=== PATIENT | male | born 1970 | race Caucasian/White ===

== ENCOUNTER 2022-07-14 23:15 | Emergency (ER) | payer OTHER, SELFPAY ==
--- NOTE | ~2022-07-14 | XR_ITS ---
EXAMINATION: XR FOREARM, RIGHT XR WRIST, RIGHT CLINICAL INFORMATION: Pain after fall COMPARISON: None TECHNIQUE: 2 views of the right forearm. 2 views of the right wrist. FINDINGS: Right forearm: There is a nondisplaced fracture of the distal ulnar diaphysis. No angulation. No additional fractures seen. Appropriate alignment of the elbow. Mild soft tissue swelling. Right wrist: No additional fractures are seen at the wrist. The carpal rows are well aligned. The distal soft tissues are unremarkable. XR/XR wrist RT min 3V IMPRESSION: Nondisplaced fracture of the distal ulnar diaphysis.
--- NOTE | ~2022-07-14 | XR_ITS ---
EXAMINATION: XR FOREARM, RIGHT XR WRIST, RIGHT CLINICAL INFORMATION: Pain after fall COMPARISON: None TECHNIQUE: 2 views of the right forearm. 2 views of the right wrist. FINDINGS: Right forearm: There is a nondisplaced fracture of the distal ulnar diaphysis. No angulation. No additional fractures seen. Appropriate alignment of the elbow. Mild soft tissue swelling. Right wrist: No additional fractures are seen at the wrist. The carpal rows are well aligned. The distal soft tissues are unremarkable. XR/XR forearm RT 2V IMPRESSION: Nondisplaced fracture of the distal ulnar diaphysis.
[2022-07-14 23:17] VITALS: BP 131/89; PULSE 82; RESP 16; TEMP 36.7; O2SAT 98; BMI 27.1
--- NOTE | 2022-07-14 23:30 | ED_ITS ---
HPI - Extremity Problem General Chief complaint: Extremity Injury, Upper Stated complaint: possibly broke arm at work Time Seen by Provider: 07/14/22 23:28 Source: patient Mode of arrival: ambulatory Limitations: no limitations History of Present Illness HPI Narrative: This is a 51-year-old male no significant medical history presenting to the emergency department status post work related injury coming in and complaining of right forearm pain. 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 When he fell he did not hit his head or lose consciousness. He tells me he strictly landed on his forearm and he is having pain localized to his forearm worse with movement better at rest. He reports intermittent numbness and tingling. Patient not on blood thinners. Patient has been able to lift things without difficulty. Patient denies fevers, chills, back pain, headache, vision changes, dizziness, weakness, facial asymmetry, chest pain, shortness of breath, nausea, vomiting, abdominal pain, changes in bowel habits, urinary/bowel incontinence/retention, saddle paresthesia To note patient denies trauma to head, neck, chest, abdomen and pelvis. Related Data Previous Rx's Medication Instructions Recorded cephalexin 500 mg tablet 500 mg PO Q6H 10 days #40 tabs 07/14/22 morphine 15 mg immediate release 15 mg PO BID PRN pain #8 tabs 07/14/22 tablet Allergies Allergy/AdvReac Type Severity Reaction Status Date / Time No Known Allergies Allergy Unverified 05/08/20 15:50 [No Known Allergies*] Review of Systems Review of Systems: Constitutional : No Weight loss, No Fever, No Chills, No Fatigue, No Malaise ENT/Mouth : No sore throat, No Rhinorrhea Eyes: No Eye Pain, No Swelling, No Redness Cardiovascular : No Chest Pain, No SOB, No Dyspnea on Exertion, No Orthopnea, No Edema, No Palpitations Respiratory : No Cough, No Sputum, No Wheezing Gastrointestinal : No Nausea, No Vomiting, No Diarrhea, No Constipation, No abdominal Pain, No Hematochezia, No Melena Genitourinary : No Dysuria, No Urinary Frequency, No Hematuria, Musculoskeletal : + joint pain, No Myalgias, No Joint Swelling Skin : No Skin Lesions, No rash Neuro : No Weakness, No Numbness, No Dizziness, No Headache Psych : No Anxiety/Panic, No Depression All other systems reviewed and are negative Yes all other systems are reviewed and are negative [facility] Past Medical History Attestation statement: The following information was validated with the patient. Source: old records reviewed and nursing notes reviewed Social History Social History Alcohol intake: current Alcohol intake frequency: a few times a week Alcohol type: beer Smoked in Last 30 Days: No Use of substances other than those prescribed or required for medical reasons: No Advance Directives: No Advance Directives Information Provided: Yes Physical Exam Vital Signs: Vital Signs: Last Vital Signs Temp 98.8 F 07/14/22 23:40 Pulse 80 07/14/22 23:40 Resp 18 07/14/22 23:40 BP 142/89 H 07/14/22 23:40 Pulse Ox 98 07/14/22 23:40 O2 Del Method 07/14/22 23:40 BMI result Body Mass Index 27.1 vss Appearance: Alert.? Oriented X3.? No acute distress.? Head: Normocephalic, atraumatic, no step-offs or deformities Eyes: Pupils equal, round and reactive to light.? Extraocular movements intact. CVS: Normal heart rate and rhythm.? Pulses normal.? Respiratory: No respiratory distress.? Breath sounds normal.? Abdomen: Soft and nontender.? Skin: Skin warm and dry.? Normal skin color.? Normal skin turgor.? Extremities: 5/5 strength to bilateral upper and lower extremities. Full ROM to b/l wrist, fingers, elbow, shoulder. 2+ radial pulses equal and b/l. Normal hand pet care technician b/l. Pain w/ palpation overlying right ulna middle portion. Small abrasion to medial aspect of right forearm. No gross abnormalities or distracting injuries b/l. Normal cap refil < 2 seconds to all UE digits. No wrist drop bilaterally. Normal supination and pronation to bilateral upper extremities pain-free and able to do it upon resistance Neuro: Oriented X 3.? No motor deficit.? No sensory deficit. CN 2-12 intact . Normal [id number], [id number]-[id number], steady tandem gait normal coordination. Course Reevaluation(s) Reevaluation #1: Wet read of x-ray showing distal ulnar fracture without dislocation. Will reach out to orthopedic for recommendation on splint. Time: 23:48 Reevaluation #2: Spoke to orthopedic Padmaja LEE who recommends sugar-tong splint and follow-up with the orthopedic team. At this time patient will be discharged home advised return with new or worsening symptoms. Educated on worrisome signs and symptoms and when to return. Comfortable discharge with prompt PCP and Ortho follow-up. To note patient with small abrasion to forearm therefore will give him short course of antibiotics. Closed fracture however. Time: 23:49 Reevaluation #3: After patient was placed in sugar-tong splint neurovascular status intact, normal capillary refill. Proper fitting splint. Patient will be discharged home educated on mornings and cautions of morphine. Patient verbalizes understanding. Time: 23:57 MDM - Extremity (Nontraumatic) MDM Narrative Medical decision making narrative: 1135 51-year-old male presents status post tripping down the last step of his truck and landing on his right forearm. Reports pain localized to the right mid forearm. Intermittent numbness and tingling. When he fell no head strike, loss of consciousness. Not on blood thinners. Physical examination significant for 5/5 strength to bilateral upper and lower extremities. Full ROM to b/l wrist, fingers, elbow, shoulder. 2+ radial pulses equal and b/l. Normal hand pet care technician b/l. Pain w/ palpation overlying right ulna middle portion. Small abrasion to medial aspect of right forearm. No gross abnormalities or distracting injuries b/l. Normal cap refil < 2 seconds to all UE digits. No wrist drop bilaterally. Normal supination and pronation to bilateral upper extremities pain-free and able to do it upon resistance GCS- 15 NIHSS-0 No evidence of ligament or tendon injury. Unlikely fracture dislocation however will obtain imaging to rule out. No signs of neurovascular compromise or compartment syndrome. Patient did not hit head, no headache, vision changes, weakness NH stroke scale 0. Unlikely intracranial hemorrhage, stroke head trauma. Plan at this time is imaging. Will obtain an image of right forearm and hand and wrist. Medical Records Attestation: I reviewed the patient's medical records. Lab Data Attestation: I reviewed the patient's lab results. Critical Care Time Critical Care Time Critical Care Time: No Total Critical Care Time: 35 Attestation: I attest to this time spent taking care of the patient, obtaining history, physical, reviewing labs, imaging, speaking to my attending, speaking to specialist. Discharge Plan Discharge Clinical Impression: Pain in right forearm, Abrasion, Work related injury, Fracture, ulna Patient Disposition: Home, Self-Care Instructions: Arm Fracture in Adults (ED), R.I.C.E. Treatment (ED), Bone Bruise (ED) Additional Instructions: Take your medications as prescribed. If you were prescribed antibiotics today, it is important that you take your medication to their entirety, do not skip any doses, do not finish them early. Follow-up with your primary care provider this week. Please call the orthopedic team to schedule an appointment as soon as possible. Keep splint on clean and dry. Return to the emergency department with new or worsening symptoms. Such as fevers, chills, chest pain, shortness of breath, nausea, vomiting, dizziness, headache, vision changes, lethargy, numbness, tingling, severe swelling, severe pain. Your x-ray showed a fracture to the bone in the forearm called the ulna. You may require MRI for further evaluation of ligaments and tendons. In case of emergency call 911 Follow-up with the [facility] here at [facility] as this was a work related injury You can take ibuprofen every 6 hours, Tylenol every 4 as needed for [id number] pain or discomfort. Morphine is a controlled medications/narcotics as been sent to your pharmacy please take this for severe pain, it can cause dependence, please do not take this with alcohol, do not take while driving or operating machinery as it can cause drowsiness. Do not share this medication with anyone. You can apply ice to affected area. XR/XR wrist RT min 3V IMPRESSION: Nondisplaced fracture of the distal ulnar diaphysis. XR/XR forearm RT 2V IMPRESSION: Nondisplaced fracture of the distal ulnar diaphysis. ? Prescriptions: New morphine 15 mg tablet 15 mg PO BID PRN (Reason: pain) Qty: 8 0RF Rx Instructions: Partial Fill upon patient request. cephalexin 500 mg tablet 500 mg PO Q6H 10 Days Qty: 40 0RF Referrals: [facility] – [place], [place] [facility] [Provider Group] - 1 day Stand Alone Forms: Work/School Release
[2022-07-14 23:40] VITALS: BP 142/89; PULSE 80; RESP 18; TEMP 37.1; O2SAT 98
[2022-07-15] MEDS: cephALEXin 500 MG CAPSULE PO (00:12)
== END 2022-07-15 00:21 | disposition home or self-care (01) ==
PROVIDERS: Emergency Provider Internal Medicine
DX: S52.691A Other fracture of lower end of right ulna, initial encounter for closed fracture (principal); S50.811A Abrasion of right forearm, initial encounter; V85.4XXA Person injured while boarding or alighting from special construction vehicle, initial encounter; Y93.89 Activity, other specified; Y92.69 Other specified industrial and construction area as the place of occurrence of the external cause; Y99.0 Civilian activity done for income or pay
CPT/HCPCS: 29125; 73090; 73110; 99284

== ENCOUNTER → 2022-07-22 08:34 | Outpatient (BNVA) | payer OTHER, SELFPAY | PROVIDERS: Visit Provider Internal Medicine | DX: S52.254A Nondisplaced comminuted fracture of shaft of ulna, right arm, initial encounter for closed fracture (principal); W18.30XA Fall on same level, unspecified, initial encounter | CPT/HCPCS: 99203 ==

== ENCOUNTER 2022-07-22 12:03 | Outpatient (REF) | payer OTHER, SELFPAY ==
--- NOTE | ~2022-07-22 | XR_ITS ---
EXAMINATION: XR FOREARM, RIGHT CLINICAL INFORMATION: Fracture shaft of right elbow COMPARISON: Right forearm 07/14/2022 TECHNIQUE: AP and lateral views of the right forearm were obtained. FINDINGS: There is mildly displaced fracture of the distal ulnar diaphysis compared to last study. No additional fracture seen. Mild soft tissue swelling. XR/XR forearm RT 2V IMPRESSION: New mildly displaced fracture distal ulnar diaphysis compared to 07/14/2022.
== END 2022-07-22 12:04 | disposition home or self-care (01) ==
LOC: HO.HOSX 12:03
PROVIDERS: Visit Provider Orthopaedic Surgery
DX: S52.201A Unspecified fracture of shaft of right ulna, initial encounter for closed fracture (principal)
CPT/HCPCS: 25530; 73090; 99202

== ENCOUNTER 2022-08-10 | Outpatient (REF) | payer OTHER, SELFPAY ==
--- NOTE | ~2022-08-10 | XR_ITS ---
EXAMINATION: XR FOREARM, RIGHT CLINICAL INFORMATION: Fracture follow-up COMPARISON: 07/22/2022 TECHNIQUE: AP and lateral views of the right forearm were obtained. FINDINGS: No significant change in the appearance or alignment of the transverse fracture of the distal ulnar shaft which is slightly angulated. No osseous bridging. No new abnormality. XR/XR forearm RT 2V IMPRESSION: No significant change in the appearance of the distal ulnar shaft fracture.
== END 2022-08-10 00:01 | disposition home or self-care (01) ==
LOC: HO.HOSX
PROVIDERS: Visit Provider Orthopaedic Surgery
DX: Z13.89 Encounter for screening for other disorder (principal)

== ENCOUNTER → 2022-08-10 12:03 | Outpatient (BNVA) | payer OTHER, SELFPAY | PROVIDERS: Visit Provider Orthopaedic Surgery | DX: S52.201D Unspecified fracture of shaft of right ulna, subsequent encounter for closed fracture with routine healing (principal) | CPT/HCPCS: 73090 ==

== ENCOUNTER 2022-08-30 14:23 | Outpatient (REF) | payer SELFPAY | END 2022-08-30 14:24 | disposition home or self-care (01) | LOC: HO.HOSX 14:23 | PROVIDERS: Visit Provider Orthopaedic Surgery | DX: Z13.89 Encounter for screening for other disorder (principal) ==

== ENCOUNTER 2022-08-31 08:21 | Outpatient (REF) | payer OTHER, SELFPAY ==
--- NOTE | ~2022-08-31 | XR_ITS ---
EXAMINATION: XR WRIST, RIGHT CLINICAL INFORMATION: Right wrist pain. COMPARISON: Right forearm radiographs dated 07/14/2022. TECHNIQUE: PA, lateral, and oblique views of the right wrist. FINDINGS: There is an acute, minimally displaced comminuted transverse fracture of the distal one third of the right ulnar diaphysis. Mild adjacent calcification is seen. The distal radius is intact. The carpal bones are normally aligned. There is mild soft tissue swelling. XR/XR wrist RT min 3V IMPRESSION: Mild interval healing of distal ulnar diaphysis fracture with fracture line still visualized.
== END 2022-08-31 08:22 | disposition home or self-care (01) ==
LOC: HO.HOSX 08:21
PROVIDERS: Visit Provider Physician Assistant
DX: S52.201A Unspecified fracture of shaft of right ulna, initial encounter for closed fracture (principal); S62.306D Unspecified fracture of fifth metacarpal bone, right hand, subsequent encounter for fracture with routine healing
CPT/HCPCS: 73110; 99212

== ENCOUNTER 2022-10-13 09:57 | Outpatient (REF) | payer OTHER, SELFPAY ==
--- NOTE | ~2022-10-13 | XR_ITS ---
EXAMINATION: XR WRIST, RIGHT CLINICAL INFORMATION: Fracture COMPARISON: Previous x-ray most recent August 2022 TECHNIQUE: PA, lateral, and oblique views of the right wrist. FINDINGS: There is a healing nondisplaced fracture of the distal shaft of the ulna. Fracture line appears more obscured and there is increasing bony callus formation. There is an old healed fracture of the base of the fifth metacarpal bone. No other fracture. Osteopenia. Mild arthritis at the first SKILLED NURSING joint. XR/XR wrist RT min 3V IMPRESSION: Healing fracture of the distal shaft of the ulna.
== END 2022-10-13 09:58 | disposition home or self-care (01) ==
LOC: HO.HOSX 09:57
PROVIDERS: Visit Provider Orthopaedic Surgery
DX: S52.201D Unspecified fracture of shaft of right ulna, subsequent encounter for closed fracture with routine healing (principal); S62.306D Unspecified fracture of fifth metacarpal bone, right hand, subsequent encounter for fracture with routine healing; M25.641 Stiffness of right hand, not elsewhere classified; R00.0 Tachycardia, unspecified; V87.8XXD Person injured in other specified noncollision transport accidents involving motor vehicle (traffic), subsequent encounter
CPT/HCPCS: 73110; 99212

== ENCOUNTER 2022-10-28 09:00 | Outpatient (RCR) | payer OTHER, SELFPAY ==
--- NOTE | 2022-09-03 08:51 | MHC.OT.EP ---
[address] [phone] Occupational Therapy Plan of Care Date of Evaluation: 09/03/22 Diagnosis: Right ulnar shaft fx Right 5th MC fx Assessment: 51 yo right hand dominant male presents to OT about seven weeks s/p fall at work w/ right ulnar shaft fx. He was initially placed in sugar tong splint in ED and referred to [facility]. He has since had several follow ups w/ Dr Matthews and was placed in [place] splint until this past week, removed at last ortho appointment 08/31/22 and x-rays showed bony healing of ulna, but also indicated subacute right D5 MC base fx that patient reports likely happened in May. On assessment today, he continues to have significant edema in right hand, but wrist and digit range has improved since removed from cast few days ago and given clearance to start range of motion, now coming about 1 cm tip to palm and wrist ROM within about 20 degrees of functional range. He is very motivated and hopeful to return to work in the next month or so. He has a physical fitness test in one month and at this time I am hopeful but have also recommend he look into process of deferring test a bit longer just in case he is not 100%. Frequency and Duration: The patient will be seen 2x/wk for 6 weeks Short Term Goals: Ind w/ heat/cold modalities apprpriately Ind w/ self edema management techniques Full tip-palm digit flexion Right gross grasp 20lb Right wrist ROM 60/50 Right forearm rotation 70/70 Pt to demo ease w/ light bimanual tasks in clinic (buttoning shirt, tying laces, etc) Equity Holder Goals: Pt to demo lift and carry 30lb bimanually w/ ease Right gross grasp >75lb Right wrist AROM 70/60 Right forearm rotation 80/80 Right hand edema figure 8 - 47.5 cm Treatment Plan: Therapeutic Exercise Therapeutic Activity Home Exercise Program Patient Education Edema Control ADL Training Paraffin Fluidotherapy MHP Cold Packs Joint Mobilization Soft Tissue Mobilization Kinesiotaping Electronically Signed By: Jeni Shields, OTR/L CHT Please Sign and return to therapist. Thank you once again for your referral.
--- NOTE | 2022-10-05 13:38 | MHC.OT.OD ---
[address] [phone] F: [phone] Occupational Therapy Daily Note Start Time: 899 End Time: 944 Visit Duration: 45 Billable Time: 45 Date of Evaluation: 09/03/22 Treatments to Date: 8 Cancellations to Date: 0 Subjective: 10/05 - My whole arm was numb most of yesterday. The swelling only goes away temporarily. 09/28 Pt reports exercising from 3 -7 or 8 pm daily including a few hours of using a hand gripper. 09/21 - The swelling goes away temporarily, but seems to come back in the morning. 09/16 - I bought the edema glove and it seems to be helping. The swelling is getting in the way, it goes down but then if I walk or when I wake up it's there again Pain Score: 2 Pain Location: right wrist and hand, shoulder Objective: Seated lateral trunk extension with R UE overhead to facilitate lymphatic drainage Kinesiotape to R hand for lymphatic correction Fabricated right wrist cock-up splint for nighttime use Pt. educated in indications, wearing schedule, and skin checks AROM right wrist and thumb 10 x 2 sets each followed by passive MC and IP stretch to tolerance. Intrinsics streches 7 sec holds. 10 reps for PIP/DIP flex, and composite digit ext Practice with isolated intrinsic stretches digit 2-5 Straight fist to palm COCOPAH faded to indep Tests and Measures: Wrist AROM 50/54 Able to make full composite fist following exercise (previously 2 cm tip-palm pre-tx) Gross grasp R: 35# (previously 15#) L: 120# Palmar circumference at MCP's R: 9.5 cm L: 9.0 cm Assessment: Pt seen for re-eval this visit. 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 He continues to c/o nighttime pain and numbness in his R hand, as well as significant edema, reporting that yesterday his entire UE was numb for most of the day. Shoulder AROM is WFL's although pain with end range flexion and cross body Abd. Shoulder pain is improving, although continues to wake him up at night and is stiff in the morning. Pt. has been very compliant with all exercises and has purchased multiple items to assist with decreasing R hand edema. He has been issued compression sleeves, digit sleeves, and has shown some progress with edema reduction k-tape methods, although all results have been temporary. Pt. has follow up with Dr. Matthews next week. Continued skilled OT is recommended as well as possible imaging/nerve conduction studies. Short Term Goals: Ind w/ heat/cold modalities apprpriately - GOAL MET Ind w/ self edema management techniques - GOAL MET Full tip-palm digit flexion - GOAL MET Right gross grasp 20lb - GOAL MET Right wrist ROM 60/50 - PROGRESSING Right forearm rotation 70/70 - GOAL MET Pt to demo ease w/ light bimanual tasks in clinic (buttoning shirt, tying laces, etc) - GOAL MET Mcfp Goals: Pt to demo lift and carry 30lb bimanually w/ ease Right gross grasp >75lb Right wrist AROM 70/60 Right forearm rotation 80/80 Right hand edema figure 8 - 47.5 cm Plan of Care: Recommending continued OT services for edema/pain management, and strengthening of R UE. 2x/wk for 4 more weeks Treatment Plan: Therapeutic Exercise Therapeutic Activity Home Exercise Program Splinting Patient Education Desensitization/Sensory Re-ed Edema Control Fluidotherapy MHP Cold Packs Joint Mobilization Soft Tissue Mobilization Kinesiotaping Treatment Plan Comments: Electronically Signed By: Ana Leyva MS OTR/L Reviewed/agree with student documentation: Therapist:
--- NOTE | 2022-10-28 09:57 | MHC.OT.DC ---
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 He has been very complaint and motivated for all therapy and is IND with home exercise program at this time. Functional gains as follows: Pain free in right shoulder and wrist with ROM WFL's. Gross grasp strength improved to 55#, able to make a full fist and lift ~30# bimanually with ease. He should still avoid heavy lifting per Dr Matthews recommendations and remains out of work until the beginning of November. His only barrier remains constant edema in right hand/digits that is worse in the morning. He has had a significant reduction in edema of the hand, although this and stiffness persists. At this time, Moo is IND with self management and is in agreement with discharge to [facility]. Electronically Signed By: Ana Leyva, OTR/L Reviewed/agree with student documentation: Therapist: Please Sign and return to therapist, thank you for your referral.
== END 2022-11-09 13:47 | disposition home or self-care (01) ==
LOC: HO.OT 09:00
PROVIDERS: Visit Provider Orthopaedic Surgery
DX: S62.316D Displaced fracture of base of fifth metacarpal bone, right hand, subsequent encounter for fracture with routine healing (principal); S52.201D Unspecified fracture of shaft of right ulna, subsequent encounter for closed fracture with routine healing
CPT/HCPCS: 29125; 97110; 97140; 97166; 97530; 97760

== ENCOUNTER → 2022-11-23 08:04 | Outpatient (BNVA) | payer OTHER, SELFPAY | PROVIDERS: Visit Provider Physician Assistant | DX: S52.201D Unspecified fracture of shaft of right ulna, subsequent encounter for closed fracture with routine healing (principal) | CPT/HCPCS: 99212 ==